=== PATIENT | male | born 1990 | race Caucasian/White ===

== ENCOUNTER 2018-04-29 15:09 | Emergency (ER) | payer OTHER ==
[~2018-04-29] VITALS: Ht 172.7 cm; Wt 72.6 kg
[2018-04-29 15:09] VITALS: BP 115/69
[2018-04-29] MEDS ORDERED: HYDROCODONE/APAP 5/325MG 1 EACH TABLET PO ONE (16:00)
[2018-04-29] MEDS ORDERED: HYDROCODONE/APAP 5/325MG 1 EACH TABLET ONE (16:04)
== END 2018-04-29 16:48 | disposition home or self-care (01) ==
LOC: ER 15:14
DX: H57.11 Ocular pain, right eye (principal); Z98.890 Other specified postprocedural states
CPT/HCPCS: 99283; A4606; Z7610